=== PATIENT | female | born 1960 | race African-American/Black ===

== ENCOUNTER 2016-10-06 20:37 | Inpatient (IN) | payer MEDICAID, MEDICARE ==
[~2016-10-06] VITALS: Ht 165.1 cm; Wt 55.3 kg
[~2016-10-06 20:37] MED LIST: BLOOD PRESSURE MED; QUET1TAB67 PO
[2016-10-06 20:44] VITALS: BP 95/70; PULSE 115; RESP 22; TEMP 103; O2SAT 98
[2016-10-06 21:04] VITALS: BP 113/69; PULSE 113; RESP 20; O2SAT 96
[2016-10-06] MEDS ORDERED: ACETAMINOPHEN 325 MG TAB PO ONE (21:30)
[2016-10-06] MEDS ORDERED: PIPERACIL-TAZO 4.5 GM PREMIX 100 ML IV ONE (21:30)
[2016-10-06] MEDS ORDERED: VANCOMYCIN INJ 1,000 MG in SODIUM CHLOR 0.9% 250 ML INJ 250 ML IV ONE (21:30)
[2016-10-06] MEDS ORDERED: SODIUM CHLOR 0.9% 1000 ML INJ 1,000 ML IV ONE (21:30)
--- NOTE | 2016-10-06 21:30 | PD ---
HPI Chief Complaint: Fever Time Seen by Provider: 21:21 Travel History International Travel<30 days: No Contact w/Intl Traveler<30days: No Traveled to known affect area: No History of Present Illness HPI 56-year-old female presents to the emergency department by private transportation for evaluation of myalgias arthralgias fever with right chest pain and shortness of breath since Thursday. Patient states that she has taken ibuprofen intermittently. Last dose was at 7 AM today. Patient states symptoms have not improved since 5 decided to come to the emergency room. Patient has not had any cough. Patient denies phlegm production. Patient's had headache with fever but otherwise no ongoing headache and no neck stiffness or pain. No sore throat or earache. Patient is concerned she has the flu. Patient denies any abdominal pain. Patient's had no nausea or vomiting. Patient denies diarrhea. Patient denies dysuria frequency urgency or flank pain. No report of vaginal discharge or abnormal vaginal bleeding. No joint pain or swelling. No skin rash. No injury or fall. Patient is not followed up with an urgent care primary care provider. Patient takes no prescription medications. Patient has prior history of migraines. [facility] Past Medical History Narrative Medical Bipolar disorder, migraines, hypertension, tubal ligation, hand surgery, tonsillectomy; tobacco use occasional alcohol use; nursing notes reviewed Bipolar Disorder: Yes Depression: Yes Hypertension: Yes Respiratory: Yes Tetanus Vaccination: Unknown Influenza Vaccination: No ?: Not LMP: MENOPAUSE Tubal Ligation: Yes Past Surgical History Tonsillectomy: Yes Social History Alcohol Use: Yes (occasional) Tobacco Use: Yes (AT LEAST A PPD) Substance Use: No Allergies-Medications (Allergen,Severity, Reaction): Coded Allergies: No Known Allergies (Verified , 10/06/16) Reported Meds & Prescriptions Reported Meds & Active Scripts Active Narrative Medication Advil 7 AM Review of Systems Except as stated in HPI: all other systems reviewed are Neg General / Constitutional: Positive: Fever, Chills Eyes: No: Visual changes HENT: Positive: Headaches, No: Congestion, Neck Stiffness, Neck Pain Cardiovascular: Positive: Chest Pain or Discomfort (right sided) Respiratory: Positive: Shortness of Breath, No: Cough, Pleuritic Pain Gastrointestinal: No: Nausea, Vomiting, Diarrhea, Abdominal Pain Genitourinary: No: Urgency, Frequency, Dysuria, Flank Pain Musculoskeletal: Positive: Myalgias, Arthralgias Skin: No Rash Neurologic: Positive: Weakness, No: Dizziness, Syncope, Focal Abnormalities, Coordination Problem Psychiatric: No: Anxiety Hematologic/Lymphatic: No: Lymph Node Enlargement Physical Exam Narrative GENERAL: Well-developed well-nourished female in no acute distress no respiratory distress. GCS 15. SKIN: Warm and dry. HEAD: Atraumatic. Normocephalic. EYES: Pupils equal and round. No scleral icterus. No injection or drainage. ENT: No nasal bleeding or discharge. Mucous membranes pink and moist. NECK: Trachea midline. No JVD. No meningismus no nuchal rigidity no Kernig's or Brudzinski. CARDIOVASCULAR: Regular rate and rhythm. Chest wall: right anterior chest wall tender to palpation and reproduces symptom of presentation, no redness, no induration, no fluctuance, no bony abnormality. RESPIRATORY: No accessory muscle use. Clear to auscultation. Breath sounds equal bilaterally. GASTROINTESTINAL: Abdomen soft, non-tender, nondistended. Hepatic and splenic margins not palpable. MUSCULOSKELETAL: Extremities without clubbing, cyanosis, or edema. No obvious deformities. NEUROLOGICAL: Awake and alert. No obvious cranial nerve deficits. Motor grossly within normal limits. Five out of 5 muscle strength in the arms and legs. Normal speech. PSYCHIATRIC: Appropriate mood and affect; insight and judgment normal. Data Data Last Documented VS Vital Signs Date Time Temp Pulse Resp B/P Pulse Ox O2 Delivery O2 Flow Rate FiO2 10/06/16 22:36 101.5 100 20 97/64 98 Room Air Orders Electrocardiogram (10/06/16 21:21) Complete Blood Count With Diff (10/06/16 21:21) Comprehensive Metabolic Panel (10/06/16 21:21) Influenzae A/B Antigen (10/06/16 21:21) Chest, Single Ap (10/06/16 21:21) Ecg Monitoring (10/06/16 21:21) Iv Access Insert/Monitor (10/06/16 21:21) Oximetry (10/06/16 21:21) Acetaminophen (Tylenol) (10/06/16 21:30) Sodium Chlor 0.9% 1000 Ml Inj (Ns 1000 M (10/06/16 21:30) Lactic Acid Sepsis Protocol (10/06/16 21:21) Blood Culture (10/06/16 21:21) Piperacil-Tazo 4.5 Gm Premix (Zosyn 4.5 (10/06/16 21:30) Vancomycin Inj (Vancomycin Inj) (10/06/16 21:30) Urinalysis - C+S If Indicated (10/06/16 21:39) Urine Culture (10/06/16 21:20) Ketorolac Inj (Toradol Inj) (10/06/16 22:30) Drug Screen, Random Urine (10/06/16 22:41) Ct Pulmonary Angiogram (10/06/16 ) Sodium Chlorid 0.9% 500 Ml Inj (Ns 500 M (10/06/16 22:45) Admit Order (Ed Use Only) (10/06/16 ) ^ Saline Lock (10/06/16 22:42) Resp Oxygen Hilton C Titrat 1-4 L (10/06/16 ) Notify Dr: Other (10/06/16 22:42) Sodium Chloride 0.9% Flush (Ns Flush) (10/07/16 09:00) Sodium Chloride 0.9% Flush (Ns Flush) (10/06/16 22:45) Labs Laboratory Tests Test 10/06/16 10/06/16 21:20 21:30 Urine Color YELLOW Urine Turbidity CLEAR Urine pH 6.0 Urine Specific [place] 1.025 Urine Protein 100 mg/dL Urine Glucose (UA) NEG mg/dL Urine Ketones NEG mg/dL Urine Occult Blood LARGE Urine Nitrite NEG Urine Bilirubin NEG Urine Leukocyte Esterase NEG Urine RBC 4-9 /hpf Urine WBC 9-14 /hpf Urine Squamous Epithelial > 8 /hpf Cells Urine Bacteria FEW /hpf Urine Mucus FEW /lpf Microscopic Urinalysis Comment CULTURE INDICATED Urine Opiates Screen NEG Urine Barbiturates Screen NEG Urine Amphetamines Screen NEG Urine Benzodiazepines Screen NEG Urine Cocaine Screen NEG Urine Cannabinoids Screen NEG White Blood Count 8.4 TH/MM3 Red Blood Count 3.84 MIL/MM3 Hemoglobin 11.9 GM/DL Hematocrit 35.6 % Mean Corpuscular Volume 92.6 FL Mean Corpuscular Hemoglobin 31.1 PG Mean Corpuscular Hemoglobin 33.5 % Concent Red Cell Distribution Width 12.4 % Platelet Count 180 TH/MM3 Mean Platelet Volume 9.2 FL Neutrophils (%) (Auto) 71.6 % Lymphocytes (%) (Auto) 19.8 % Monocytes (%) (Auto) 7.4 % Eosinophils (%) (Auto) 0.5 % Basophils (%) (Auto) 0.7 % Neutrophils # (Auto) 6.0 TH/MM3 Lymphocytes # (Auto) 1.7 TH/MM3 Monocytes # (Auto) 0.6 TH/MM3 Eosinophils # (Auto) 0.0 TH/MM3 Basophils # (Auto) 0.1 TH/MM3 CBC Comment DIFF FINAL Differential Comment Sodium Level 137 MEQ/L Potassium Level 3.5 MEQ/L Chloride Level 99 MEQ/L Carbon Dioxide Level 28.2 MEQ/L Anion Gap 10 MEQ/L Blood Urea Nitrogen 9 MG/DL Creatinine 0.64 MG/DL Estimat Glomerular Filtration 117 ML/MIN Rate Random Glucose 101 MG/DL Lactic Acid Level 1.4 mmol/L Calcium Level 8.6 MG/DL Total Bilirubin 0.6 MG/DL Aspartate Amino Transf 202 U/L (AST/SGOT) Alanine Aminotransferase 151 U/L (ALT/SGPT) Alkaline Phosphatase 135 U/L Total Protein 7.9 GM/DL Albumin 3.1 GM/DL [facility] Medical Decision Making Medical Screen Exam Complete: Yes Emergency Medical Condition: Yes Medical Record Reviewed: Yes Interpretation(s) EKG: Sinus tachycardia rate 103 nonspecific anterior T wave changes no acute ST elevation or injury pattern change noted Differential Diagnosis Febrile illness, viral syndrome, pneumonia, influenza, UTI, sepsis Narrative Course 56-year-old female with symptoms 5 days presents with fever or tachycardia and mild tachypnea; patient meets SIRS criteria on triage admission no clear source at this time although patient does complain of shortness of breath with right- sided chest pain concerning/suspicious for possible pneumonia. Patient herself is concerned about having the flu. Patient without any other obvious focality on exam. Patient placed on security monitor IV access obtained specimens collected fluid bolus administered patient presumptively administered Zosyn 4.5 g IV along with vancomycin 1 g IV. Patient also administered antipyretic acetaminophen by mouth. Patient reporting feeling some improved after iv fluids just received tylenol for fever Aware of labs and plan for admission--agreeable \discussed with [facility] MD Dr Gagnon --requests CT pulmonary angiogram and uds; will add CT abd/pel as well UDS: negative Sepsis Criteria SIRS Criteria (2 or more): Temp > 100.9 or < 96.8, Heart rate over 90, RR > 20 or PaCO2 < 32 Sepsis Criteria (SIRS+source): Infect source susp/known (urine) Physician Communication Physician Communication discussed with Dr Gagnon will admit inpatient for sepsis Diagnosis Primary Impression: Sepsis Qualified Code: A41.9 - Sepsis, due to unspecified organism Additional Impressions: UTI (urinary tract infection) Qualified Code: N39.0 - Urinary tract infection without hematuria, site unspecified Elevated LFTs Admitting Information Admitting Physician Requests: Admit Rubi Hopkins MD October 06, 2016 21:30
--- NOTE | 2016-10-06 21:47 | RADHPO ---
EXAM DATE/TIME: 10/06/2016 21:31 [facility] COMPARISON: No previous studies available for comparison. INDICATIONS : Fever and body aches. MEDICAL HISTORY : None. SURGICAL HISTORY : None. ENCOUNTER: Initial ACUITY: 3 days PAIN SCORE: 7/10 LOCATION: Bilateral chest FINDINGS: A single view of the chest demonstrates the lungs to be symmetrically aerated without evidence of mas s, infiltrate or effusion. The cardiomediastinal contours are unremarkable. Osseous structures are intact. CONCLUSION: No acute disease. Xavier Lindsey MD on October 06, 2016 at 21:45 Board Certified Radiologist. This report was verified electronically.
[2016-10-06 21:53] LABS: BASOPHIL # 0.1 TH/MM3 (0-0.2); BASOPHIL % 0.7 % (0.0-2.0); EOSINOPHIL % 0.5 % (0.0-4.0); HEMATOCRIT 35.6 % (35.0-46.0); HEMO FLAGS DIFF FINAL; LYMPH % 19.8 % (9.0-44.0); LYMPHOCYTE # 1.7 TH/MM3 (1.0-4.8); MEAN CELL VOLUME 92.6 FL (80.0-100.0); MEAN CORPUSCULAR HEMOGLOBIN 31.1 PG (27.0-34.0); MEAN CORPUSCULAR HGB CONC 33.5 % (32.0-36.0); MONO % 7.4 % (0.0-8.0); NEUT % 71.6 % (16.0-70.0); PLATELET COUNT 180 TH/MM3 (150-450); RED BLOOD COUNT 3.84 MIL/MM3 (4.00-5.30); RED CELL DISTRIBUTION WIDTH 12.4 % (11.6-17.2); WHITE BLOOD COUNT 8.4 TH/MM3 (4.0-11.0)
[2016-10-06 21:58] LABS: BLOOD, URINE LARGE (NEG); GLUCOSE,URINE NEG (NEG); KETONE, URINE NEG (NEG); NITRITE,URINE NEG (NEG)
[2016-10-06 22:01] LABS: CHLORIDE 99 MEQ/L (98-107); POTASSIUM 3.5 MEQ/L (3.5-5.1); SODIUM (NA) 137 MEQ/L (136-145)
[2016-10-06 22:04] LABS: URINE COLOR YELLOW (YELLW/STRAW)
[2016-10-06 22:05] LABS: ANION GAP 10 MEQ/L (5-15); BICARBONATE 28.2 MEQ/L (21.0-32.0); BLOOD UREA NITROGEN 9 MG/DL (7-18)
[2016-10-06 22:06] LABS: BACTERIA, URINE FEW /hpf; COMMENT (UR) CULTURE INDICATED; CULTURE IF INDICATED CULTURE INDICATED; MUCUS URINE FEW /lpf (OCC); SQUAMOUS EPITHELIAL CELL URINE > 8 /hpf (0-5)
[2016-10-06 22:07] VITALS: O2SAT 97
[2016-10-06 22:08] LABS: ALT (GPT) 151 U/L (10-53); AST (GOT) 202 U/L (15-37); GLOMERULAR FILTRATION RATE 117 ML/MIN (>89)
[2016-10-06 22:09] LABS: TOTAL BILIRUBIN ADULT 0.6 MG/DL (0.2-1.0)
[2016-10-06 22:11] LABS: ALKALINE PHOSPHATASE 135 U/L (45-117)
[2016-10-06] MEDS ORDERED: KETOROLAC TROMETHAMINE 30 MG/ML (IVP) VIAL IV PUSH ONE (22:30)
[2016-10-06 22:36] VITALS: BP 97/64; PULSE 100; RESP 20; TEMP 101.5; O2SAT 98
[2016-10-06] MEDS ORDERED: SODIUM CHLORIDE 0.9% FLUSH 10 ML FLUSH IVF PRN (22:45)
[2016-10-06] MEDS ORDERED: SODIUM CHLORID 0.9% 500 ML INJ 500 ML IV ONE (22:45)
[2016-10-06] MEDS: SODIUM CHLOR 0.9% 1000 ML INJ 1,000 ML IV SCH (22:59)
[2016-10-06] MEDS ORDERED: ACETAMINOPHEN 325 MG TAB PO PRN (23:00)
[2016-10-06] MEDS ORDERED: NALOXONE HCL 0.4 MG/ML AMP IV PRN (23:00)
[2016-10-06] MEDS ORDERED: SODIUM CHLORIDE 0.9% FLUSH 10 ML FLUSH IV FLUSH PRN (23:00)
[2016-10-06] MEDS ORDERED: ONDANSETRON HCL 4 MG/2 ML VIAL IVP PRN (23:00)
[2016-10-06 23:02] LABS: AMPHETAMINE, URINE NEG (NEG); BARBITURATES, URINE NEG (NEG); COCAINE, URINE NEG (NEG)
[2016-10-06] MEDS ORDERED: IOHEXOL 350 MG/ML 10 ML VIAL (for RAD DIAG) IV ONE (23:50)
[2016-10-07] VITALS (10 sets, daily range): BP systolic 84–110; BP diastolic 48–78; PULSE 70–105; RESP 16–20; TEMP 97–102.8; O2SAT 95–100
--- NOTE | 2016-10-07 00:19 | RADHPO ---
EXAM DATE/TIME: 10/06/2016 23:44 [facility] COMPARISON: No previous studies available for comparison. INDICATIONS : Right chest pain. IV CONTRAST: 100 cc Omnipaque 350 (iohexol) IV ; Cumulative dose for multiple exams. RADIATION DOSE: 5.92 CTDIvol (mGy) MEDICAL HISTORY : Hypertension. SURGICAL HISTORY : Tubal ligation. ENCOUNTER: Initial ACUITY: 1 week PAIN SCALE: 6/10 LOCATION: Right chest TECHNIQUE: Volumetric scanning of the chest was performed using a pulmonary embolism protocol MIP images were re constructed. Using automated exposure control and adjustment of the mA and/or kV according to patien t size, radiation dose was kept as low as reasonably achievable to obtain optimal diagnostic quality images. FINDINGS: PULMONARY ARTERIES: No filling defects are seen in the pulmonary arteries through the segmental level. LUNGS: There is dense consolidation involving the medial aspects of the left upper lobe. This extends along the axial interstitium towards the hilum. No associated bronchiectasis. Remaining lungs are clear. A few small subpleural blebs are seen on the left. A calcified granuloma is seen within the left upper lobe. PLEURAE: There is no pleural thickening or pleural effusion. MEDIASTINUM: There is good visualization of the great vessels of the middle mediastinum. No evidence of mediastin al or hilar adenopathy/mass. MUSCULOSKELETAL: Within normal limits for patient age. MISCELLANEOUS: The visualized upper abdominal organs demonstrate no acute abnormality. CONCLUSION: 1. No PE. 2. Dense consolidation within the left upper lobe. This may simply be an infectious infiltrate, howev er, followup studies are needed to document complete resolution. Other etiologies such as bronchoalve olar cell carcinoma can have a similar appearance. Anthony Quezada Jr., MD on October 07, 2016 at 0:14 Board Certified Radiologist. This report was verified electronically.
--- NOTE | 2016-10-07 00:22 | RADHPO ---
EXAM DATE/TIME: 10/06/2016 23:44 [facility] COMPARISON: No previous studies available for comparison. INDICATIONS : Fever. Body aches. Weakness. IV CONTRAST: 100 cc Omnipaque 350 (iohexol) IV ; Cumulative dose for multiple exams. ORAL CONTRAST: No oral contrast ingested. RADIATION DOSE: 5.76 CTDIvol (mGy) MEDICAL HISTORY : Hypertension. SURGICAL HISTORY : Tubal ligation. ENCOUNTER: Initial ACUITY: 1 week PAIN SCALE: 6/10 LOCATION: Bilateral upper quadrant lower quadrant TECHNIQUE: Volumetric scanning of the abdomen and pelvis was performed. Using automated exposure control and ad justment of the mA and/or kV according to patient size, radiation dose was kept as low as reasonably achievable to obtain optimal diagnostic quality images. FINDINGS: LOWER LUNGS: The visualized lower lungs are clear. LIVER: Homogeneous density without lesion. There is no dilation of the biliary tree. No calcified gallston es. SPLEEN: Normal size without lesion. PANCREAS: Within normal limits. KIDNEYS: Normal in size and shape. There is no mass, stone or hydronephrosis. ADRENAL GLANDS: Within normal limits. VASCULAR: There is no aortic aneurysm. BOWEL/MESENTERY: The stomach, small bowel, and colon demonstrate no acute abnormality. There is no free intraperitone al air or fluid. Scattered colonic diverticuli. No acute inflammation. ABDOMINAL WALL: Within normal limits. RETROPERITONEUM: There is no lymphadenopathy. BLADDER: No wall thickening or mass. REPRODUCTIVE: Within normal limits. INGUINAL: There is no lymphadenopathy or hernia. MUSCULOSKELETAL: Within normal limits for patient age. CONCLUSION: 1. No acute abnormality. 2. Colonic diverticulosis. Anthony Quezada Jr., MD on October 07, 2016 at 0:19 Board Certified Radiologist. This report was verified electronically.
[2016-10-07] MEDS ORDERED: KETOROLAC TROMETHAMINE 60 MG/2 ML (IM) VIAL IM PRN (06:15)
[2016-10-07 06:39] LABS: AUTOMATED NEUTROPHIL # 5.3 TH/MM3 (1.8-7.7); BASOPHIL # 0.1 TH/MM3 (0-0.2); BASOPHIL % 0.8 % (0.0-2.0); EOSINOPHIL # 0.1 TH/MM3 (0-0.4); EOSINOPHIL % 1.4 % (0.0-4.0); HEMATOCRIT 33.9 % (35.0-46.0); HEMO FLAGS DIFF FINAL; LYMPH % 23.6 % (9.0-44.0); MEAN CELL VOLUME 93.2 FL (80.0-100.0); MEAN CORPUSCULAR HEMOGLOBIN 30.9 PG (27.0-34.0); MEAN CORPUSCULAR HGB CONC 33.2 % (32.0-36.0); MONO % 12.3 % (0.0-8.0); NEUT % 61.9 % (16.0-70.0); PLATELET COUNT 168 TH/MM3 (150-450); RED BLOOD COUNT 3.64 MIL/MM3 (4.00-5.30); RED CELL DISTRIBUTION WIDTH 12.4 % (11.6-17.2); WHITE BLOOD COUNT 8.6 TH/MM3 (4.0-11.0)
[2016-10-07 06:57] LABS: POTASSIUM 3.2 MEQ/L (3.5-5.1)
[2016-10-07 07:01] LABS: BICARBONATE 27.4 MEQ/L (21.0-32.0)
[2016-10-07] MEDS: SODIUM CHLORIDE 0.9% FLUSH 10 ML FLUSH IV FLUSH SCH ×2 (09:00→20:53)
[2016-10-07] MEDS ORDERED: SODIUM CHLORIDE 0.9% FLUSH 10 ML FLUSH IV FLUSH SCH (09:00)
[2016-10-07] MEDS: VANCOMYCIN INJ 1,250 MG in SODIUM CHLOR 0.9% 250 ML INJ 250 ML IV SCH ×2 (10:34→20:53)
[2016-10-07] MEDS: SODIUM CHLOR 0.9% 1000 ML INJ 1,000 ML IV SCH ×2 (10:35→17:57)
--- NOTE | 2016-10-07 12:11 | PD.PN.STU ---
Subjective Remarks Patient is a 56 year old woman who presented to ED yesterday with complaint of myalgias, fever, right-sided chest pain, and shortness of breath since Thursday. After a thorough workup, she was found to have a UTI. She has received IV vanc and pip/tazo and is feeling better. Her only complaint now is a headache which has persisted. She reports history of migraines. She denies urinary frequency, dysuria, nausea/vomiting, diarrhea, and dizziness. She takes no medications at home. She smokes about a half ppd. Objective Vitals GENERAL: Thin, well-developed, well-nourished female in no acute distress no respiratory distress. SKIN: Warm and dry. HEAD: Atraumatic. Normocephalic. EYES: Pupils equal and round. No scleral icterus. No injection or drainage. Extraocular movements intact. ENT: Mucous membranes pink and moist. NECK: Trachea midline. No JVD. CARDIOVASCULAR: Regular rate and rhythm. RESPIRATORY: No accessory muscle use. Clear to auscultation. Breath sounds equal bilaterally. GASTROINTESTINAL: Abdomen soft, non-tender, nondistended. Hepatic and splenic margins not palpable. MUSCULOSKELETAL: Extremities without clubbing, cyanosis, or edema. No obvious deformities. NEUROLOGICAL: Awake and alert. No obvious cranial nerve deficits. Motor grossly within normal limits. Five out of 5 muscle strength in the arms and legs. Normal speech. PSYCHIATRIC: Appropriate mood and affect; insight and judgment normal. Vital Signs Date Time Temp Pulse Resp B/P Pulse Ox O2 Delivery O2 Flow Rate FiO2 10/07/16 09:22 98 21 10/07/16 08:00 97.2 79 18 110/60 98 10/07/16 07:55 18 10/07/16 06:25 98 21 10/07/16 00:26 101.0 86 18 93/62 98 10/07/16 00:00 97.3 75 20 84/48 100 10/06/16 23:12 20 10/06/16 22:36 101.5 100 20 97/64 98 Room Air 10/06/16 22:07 97 Room Air 10/06/16 21:06 100 Room Air 10/06/16 21:04 113 20 113/69 96 Room Air 10/06/16 20:44 103.0 115 22 95/70 98 I/O 5/810/06/16 10/06/16 10/07/16 10/07/16 10/07/16 07:00 15:00 23:00 07:00 15:00 23:00 Intake Total 1490 ml 200 ml Balance 1490 ml 200 ml Intake Oral 240 ml IV Total 1250 ml 200 ml # Voids 3 1 # Bowel Movements 0 Result Diagram: 10/07/16 0609 10/07/16 0609 A/P Assessment and Plan UTI: Given IV Vanc and Pip/Tazo Pending urine culture. Sepsis: Given IV Vanc and Pip/Tazo Resolved. Migraine: History of migraine headaches Administer Sumatriptan Hypokalemia: Recheck BMP Replace as necessary Hypocalcemia: Recheck BMP Replace as necessary [facility] October 07, 2016 12:10 Maninder Westfall MD October 08, 2016 12:16
[2016-10-07] MEDS: PIPERACIL-TAZO 3.375 GM PREMIX 50 ML IV SCH ×2 (12:15→16:27)
--- NOTE | 2016-10-07 15:40 | EKG ---
Date Performed: 10/06/2016 Time Performed: 21:46:58 PTAGE: 56 years EKG: Sinus tachycardia. Anterior T wave changes are nonspecific Compared to prior tracing no sig nificant change Borderline ECG PREVIOUS TRACING : 10/21/2007 21.47 DOCTOR: Eusebio Gutierrez Interpretating Date/Time 10/07/2016 15:36:58
--- NOTE | 2016-10-07 15:44 | HHI.PR ---
Objective Vitals Vital Signs Date Time Temp Pulse Resp B/P Pulse Ox O2 Delivery O2 Flow Rate FiO2 10/07/16 12:00 97.0 70 16 100/58 98 10/07/16 09:22 98 21 10/07/16 08:00 97.2 79 18 110/60 98 10/07/16 07:55 18 10/07/16 06:25 98 21 10/07/16 00:26 101.0 86 18 93/62 98 10/07/16 00:00 97.3 75 20 84/48 100 10/06/16 23:12 20 10/06/16 22:36 101.5 100 20 97/64 98 Room Air 10/06/16 22:07 97 Room Air 10/06/16 21:06 100 Room Air 10/06/16 21:04 113 20 113/69 96 Room Air 10/06/16 20:44 103.0 115 22 95/70 98 I/O 10/06/16 10/06/16 10/06/16 10/07/16 10/07/16 10/07/16 07:00 15:00 23:00 07:00 15:00 23:00 Intake Total 1490 ml 1000 ml Balance 1490 ml 1000 ml Intake Oral 240 ml 800 ml IV Total 1250 ml 200 ml # Voids 3 4 # Bowel Movements 0 Result Diagram: 10/07/1660810/07/16608 Maninder Westfall MD October 07, 2016 15:44
--- NOTE | 2016-10-07 16:14 | HHI.HP ---
HPI Service [facility] Hospitalists Primary Care Physician No Primary Care Physician Admission Diagnosis sepsis; uti; elevated LFT's Diagnoses: Chief Complaint: Myalgias, fever Travel History International Travel<30 Days: No Contact w/Intl Traveler <30 Da: No Traveled to Known Affected Are: No History of Present Illness This is a 56-year-old female with past medical history significant for hypertension and depression who is noncompliant with medications and presents to [facility] complaining of myalgias, arthralgias, fever associated with right chest pain and shortness of breath since Thursday. The patient states that she had taken ibuprofen intermittently but symptoms have not improved since 5 AM prior to presentation to emergency department. The patient denies any cough, sputum production. The patient denies abdominal pain , diarrhea, nausea vomiting, denies dysuria, frequency, urgency or flank pain. There are no reports of vaginal discharge or vaginal bleeding. Denies joint pain or swelling, denies skin rash. Review of Systems As per history of present illness, other systems reviewed by me and negative Past Family Social History Past Medical History 1. Hypertension. 2. Depression. Past Surgical History 1. Tubal ligation. 2. Hand surgery. 3. Tonsillectomy. Reported Medications Reported Meds & Active Scripts Allergies: Coded Allergies: No Known Allergies (Verified , 10/06/16) Active Ordered Medications Current Medications Medications (Trade) Dose Ordered Sig/Winter Route Start Time Stop Time Status Last Admin (NS 1000 ml Inj) 1,000 ml @ 100 mls/hr Q10H IV 10/06/16 22:59 10/07/16 10:35 (NS Flush) 2 ml UNSCH PRN IV FLUSH 10/06/16 23:00 (NS Flush) 2 ml BID IV FLUSH 10/07/16 09:00 (Tylenol) 650 mg Q4H PRN PO 10/06/16 23:00 10/07/16 06:51 (Zofran Inj) 4 mg Q6H PRN IVP 10/06/16 23:00 Naloxone HCl 0.4 mg 0.4 mg UNSCH PRN IV 10/06/16 23:00 Vancomycin HCl 1250 mg/Sodium Chloride 262.5 ml @ 262.5 mls/ hr Q12H IV 10/07/16 09:00 10/07/16 10:34 (Zosyn 3.375 Gm Premix) 50 ml @ 100 mls/hr Q8H IV 10/07/16 09:00 10/07/16 12:15 (Toradol Inj) 15 mg Q6H PRN IM 10/07/16 06:15 10/12/16 06:14 (Motrin) 400 mg Q8H PRN PO 10/07/16 15:45 Family History Father, grandmother and grandfather of heart disease. Social History She smokes one pack per day. Drinks alcohol occasionally. Denies using illicit drugs Physical Exam Vital Signs Vital Signs Date Time Temp Pulse Resp B/P Pulse Ox O2 Delivery O2 Flow Rate FiO2 10/07/16 12:00 97.0 70 16 100/58 98 10/07/16 09:22 98 21 10/07/16 08:00 97.2 79 18 110/60 98 10/07/16 07:55 18 10/07/16 06:25 98 21 10/07/16 00:26 101.0 86 18 93/62 98 10/07/16 00:00 97.3 75 20 84/48 100 10/06/16 23:12 20 10/06/16 22:36 101.5 100 20 97/64 98 Room Air 10/06/16 22:07 97 Room Air 10/06/16 21:06 100 Room Air 10/06/16 21:04 113 20 113/69 96 Room Air 10/06/16 20:44 103.0 115 22 95/70 98 Physical Exam GENERAL: This is a well-nourished, well-developed patient, in no apparent distress. SKIN: No rashes, ecchymoses or lesions. Cool and dry. HEAD: Atraumatic. Normocephalic. No temporal or scalp tenderness. EYES: Pupils equal round and reactive. Extraocular motions intact. No scleral icterus. No injection or drainage. ENT: Nose without bleeding, purulent drainage or septal hematoma. Throat without erythema, tonsillar hypertrophy or exudate. Uvula midline. Airway patent. NECK: Trachea midline. No JVD or lymphadenopathy. Supple, nontender, no meningeal signs. CARDIOVASCULAR: Regular rate and rhythm without murmurs, gallops, or rubs. RESPIRATORY: Clear to auscultation. Breath sounds equal bilaterally. No wheezes , rales, or rhonchi. GASTROINTESTINAL: Abdomen soft, non-tender, nondistended. No hepato-splenomegaly , or palpable masses. No guarding. MUSCULOSKELETAL: Extremities without clubbing, cyanosis, or edema. No joint tenderness, effusion, or edema noted. No calf tenderness. Negative Homans sign bilaterally. NEUROLOGICAL: Awake and alert. Cranial nerves II through XII intact. Motor and sensory grossly within normal limits. Five out of 5 muscle strength in all muscle groups. Normal speech. Laboratory Laboratory Tests Test 10/06/16 10/06/16 10/07/16 21:20 21:30 06:09 Urine Color YELLOW Urine Turbidity CLEAR Urine pH 6.0 Urine Specific [place] 1.025 Urine Protein 100 Urine Glucose (UA) NEG Urine Ketones NEG Urine Occult Blood LARGE Urine Nitrite NEG Urine Bilirubin NEG Urine Leukocyte Esterase NEG Urine RBC 4-9 Urine WBC 9-14 Urine Squamous Epithelial > 8 Cells Urine Bacteria FEW Urine Mucus FEW Microscopic Urinalysis Comment CULTURE INDICATED Urine Opiates Screen NEG Urine Barbiturates Screen NEG Urine Amphetamines Screen NEG Urine Benzodiazepines Screen NEG Urine Cocaine Screen NEG Urine Cannabinoids Screen NEG White Blood Count 8.4 8.6 Red Blood Count 3.84 3.64 Hemoglobin 11.9 11.3 Hematocrit 35.6 33.9 Mean Corpuscular Volume 92.6 93.2 Mean Corpuscular Hemoglobin 31.1 30.9 Mean Corpuscular Hemoglobin 33.5 33.2 Concent Red Cell Distribution Width 12.4 12.4 Platelet Count 180 168 Mean Platelet Volume 9.2 9.2 Neutrophils (%) (Auto) 71.6 61.9 Lymphocytes (%) (Auto) 19.8 23.6 Monocytes (%) (Auto) 7.4 12.3 Eosinophils (%) (Auto) 0.5 1.4 Basophils (%) (Auto) 0.7 0.8 Neutrophils # (Auto) 6.0 5.3 Lymphocytes # (Auto) 1.7 2.0 Monocytes # (Auto) 0.6 1.1 Eosinophils # (Auto) 0.0 0.1 Basophils # (Auto) 0.1 0.1 CBC Comment DIFF FINAL DIFF FINAL Differential Comment Sodium Level 137 142 Potassium Level 3.5 3.2 Chloride Level 99 106 Carbon Dioxide Level 28.2 27.4 Anion Gap 10 9 Blood Urea Nitrogen 9 8 Creatinine 0.64 0.53 Estimat Glomerular Filtration 117 145 Rate Random Glucose 101 91 Lactic Acid Level 1.4 Calcium Level 8.6 8.2 Total Bilirubin 0.6 Aspartate Amino Transf 202 (AST/SGOT) Alanine Aminotransferase 151 (ALT/SGPT) Alkaline Phosphatase 135 Total Protein 7.9 Albumin 3.1 Date/Time Procedure Status Source Growth 10/06/16 21:40 Influenza Types A,B Antigen (ITZ) - Final Complete Nasal Washing NEGATIVE FOR FLU A AND B ANTIGEN.... 10/06/16 21:35 Aerobic Blood Culture - Preliminary Resulted Blood Peripheral NO GROWTH IN 1 DAY 10/06/16 21:35 Anaerobic Blood Culture - Preliminary Resulted Blood Peripheral NO GROWTH IN 1 DAY 10/06/16 21:20 Urine Culture - Preliminary Resulted Urine Clean Catch RESULTS PENDING Result Diagram: 10/07/16 0609 10/07/16 0609 Imaging Last Impressions Chest X-Ray 10/06/162120 Signed Impressions: Service Date/Time: Thursday, October 06, 2016 21:31 - CONCLUSION: No acute disease. Xavier Lindsey MD CT Angiography 10/06/16 0000 Signed Impressions: Service Date/Time: Thursday, October 06, 2016 23:44 - CONCLUSION: 1. No PE. 2. Dense consolidation within the left upper lobe. This may simply be an infectious infiltrate, however, followup studies are needed to document complete resolution. Other etiologies such as bronchoalveolar cell carcinoma can have a similar appearance. Anthony Quezada Jr., MD Abdomen/Pelvis CT 10/06/16 0000 Signed Impressions: Service Date/Time: Thursday, October 06, 2016 23:44 - CONCLUSION: 1. No acute abnormality. 2. Colonic diverticulosis. Anthony Quezada Jr., MD Septic Shock Reassessment Heart: Regular rate and rhythm Lungs: Clear Skin: Warm Peripheral Pulses: Bounding Right Radial Bounding Left Radial Capillary Refill: <2 seconds Assessment and Plan Problem List: (1) Sepsis ICD Code: A41.9 Status: Acute Plan: Sepsis secondary to community acquired pneumonia and UTI. CTA showed left upper lobe infiltrate, UA positive. Sepsis present on admission with patient presenting and temperature of 103.0 and heart rate of 115 as well as a respiratory rate of 22. Continue IV antibiotics, patient started on IV vancomycin and Zosyn, continue Continue IV fluids in the form of normal saline Lactic acid 1.4. Follow-up blood cultures Follow-up urine cultures and adjust antibiotics accordingly. (2) CAP (community acquired pneumonia) ICD Code: J18.9 Status: Acute Plan: As seen on CTA mentioned above. Continue IV broad-spectrum antibiotics. We'll check urine pneumococcal antigen, urine Legionella antigen, provide supplemental oxygen as needed. Patient will need a repeat CT scan of the chest in 2 months. (3) UTI (urinary tract infection) ICD Code: N39.0 Status: Acute Plan: UA positive. Follow-up urine cultures. Continue IV antibiotics. (4) Fever ICD Code: R50.9 Status: Acute Plan: Due to sepsis secondary to UTI. Will Rx ibuprofen when necessary for fever and elevated liver function tests. (5) Hypokalemia ICD Code: E87.6 Status: Acute Plan: Likely due to nutritional deficiency. Replace orally and continue to monitor BMP. (6) Elevated LFTs ICD Code: R94.5 Status: Acute Plan: Check hepatitis B and liver ultrasound. Continue to monitor liver function test. (7) Chest pain ICD Code: R07.9 Status: Acute Plan: CTA reviewed by me showed a dense consolidation within left upper lobe which could be due to an infectious infiltrate, however follow-up studies are needed to document complete resolution. Other etiologies such as bronchioloalveolar cell carcinoma can have similar appearance. Continue IV antibiotics as above. Assessment and Plan DVT prophylaxis: SCDs, Lovenox subcutaneously. Code Status Full code Discussed Condition With Patient Physician Certification 2 Midnight Certification Type: Admission for Inpatient Services Order for Inpatient Services The services are ordered in accordance with Medicare regulations or non- Medicare payer requirements, as applicable. In the case of services not specified as inpatient-only, they are appropriately provided as inpatient services in accordance with the 2-midnight benchmark. Estimated LOS (days): 2 days is the estimated time the patient will need to remain in the hospital, assuming treatment plan goals are met and no additional complications. Post-Hospital Plan: Home Problem Qualifiers (1) Sepsis: Qualified Code: A41.9 - Sepsis, due to unspecified organism (2) UTI (urinary tract infection): Qualified Code: N39.0 - Urinary tract infection without hematuria, site unspecified (3) Fever: Qualified Code: R50.9 - Fever, unspecified fever cause (4) Chest pain: Maninder Westfall MD October 07, 2016 16:14
[2016-10-07] MEDS: IBUPROFEN 400 MG TAB PO PRN (16:21)
[2016-10-08] VITALS: BP 121/77; PULSE 65; RESP 18; TEMP 97.4; O2SAT 94
[2016-10-08] MEDS: PIPERACIL-TAZO 3.375 GM PREMIX 50 ML IV SCH ×2 (00:27→08:28)
[2016-10-08] MEDS: SODIUM CHLOR 0.9% 1000 ML INJ 1,000 ML IV SCH ×2 (00:27→12:16)
[2016-10-08] MEDS: IBUPROFEN 400 MG TAB PO PRN ×2 (05:28→12:15)
[2016-10-08] MEDS: SODIUM CHLORIDE 0.9% FLUSH 10 ML FLUSH IV FLUSH SCH (08:29)
[2016-10-08] MEDS: VANCOMYCIN INJ 1,250 MG in SODIUM CHLOR 0.9% 250 ML INJ 250 ML IV SCH (08:29)
[2016-10-08 09:04] VITALS: BP 118/75; PULSE 67; RESP 14; TEMP 97.1; O2SAT 100
--- NOTE | 2016-10-08 09:04 | PD.PN.STU ---
Subjective Remarks pt reports feeling much better chest pain minimal today, continues to improve no dysuria, nausea/vomiting, SOB, cough/sputum production last BM yesterday in ED Objective Vitals GENERAL: Thin, well-developed, well-nourished female in no acute distress no respiratory distress. SKIN: Warm and dry. HEAD: Atraumatic. Normocephalic. EYES: Pupils equal and round. No scleral icterus. No injection or drainage. Extraocular movements intact. ENT: Mucous membranes pink and moist. NECK: Trachea midline. No JVD. CARDIOVASCULAR: Regular rate and rhythm. RESPIRATORY: No accessory muscle use. Clear to auscultation. Breath sounds equal bilaterally. GASTROINTESTINAL: Abdomen soft, non-tender, nondistended. MUSCULOSKELETAL: Extremities without clubbing, cyanosis, or edema. No obvious deformities. NEUROLOGICAL: Awake and alert. No obvious cranial nerve deficits. Motor grossly within normal limits. Five out of 5 muscle strength in the arms and legs. Normal speech. PSYCHIATRIC: Appropriate mood and affect; insight and judgment normal. Vital Signs Date Time Temp Pulse Resp B/P Pulse Ox O2 Delivery O2 Flow Rate FiO2 10/08/16 00:00 97.4 65 18 121/77 94 10/07/16 20:19 100 21 10/07/16 20:00 97.9 80 16 94/50 95 10/07/16 18:27 99.8 10/07/16 16:00 102.8 105 16 105/78 98 10/07/16 12:00 97.0 70 16 100/58 98 10/07/16 09:22 98 21 I/O 10/07/16 10/07/16 10/07/16 10/08/16 10/08/16 10/08/16 07:00 15:00 23:00 07:00 15:00 23:00 Intake Total 1490 ml 1850 ml 240 ml 3033 ml Balance 1490 ml 1850 ml 240 ml 3033 ml Intake Oral 240 ml 1650 ml 240 ml IV Total 1250 ml 200 ml 3033 ml # Voids 3 7 1 # Bowel Movements 0 0 0 Result Diagram: 10/07/16 0609 10/07/16 0609 A/P Assessment and Plan Community Acquired Pneumonia: Improving chest pain Continue antibiotics Repeat Chest CT outpatient basis UTI: Given IV Vanc and Pip/Tazo Pending urine culture. Plan on switching to oral meds once culture is complete Sepsis: Given IV Vanc and Pip/Tazo Resolved. Hypotension: Resolved Migraine: Continues to have headache History of migraine headaches Administer Sumatriptan Hypokalemia: Recheck BMP Replace as necessary Hypocalcemia: Recheck BMP Replace as necessary Elevated LFTs: Liver U/S Check for Hepatitis B aDvid Dc October 08, 2016 09:04 Maninder Westfall MD October 08, 2016 12:18
[2016-10-08 10:42] LABS: AUTOMATED NEUTROPHIL # 3.8 TH/MM3 (1.8-7.7); BASOPHIL % 0.6 % (0.0-2.0); EOSINOPHIL # 0.2 TH/MM3 (0-0.4); EOSINOPHIL % 3.4 % (0.0-4.0); HEMATOCRIT 32.7 % (35.0-46.0); HEMO FLAGS DIFF FINAL; LYMPH % 21.9 % (9.0-44.0); LYMPHOCYTE # 1.3 TH/MM3 (1.0-4.8); MEAN CELL VOLUME 92.6 FL (80.0-100.0); MEAN CORPUSCULAR HEMOGLOBIN 31.4 PG (27.0-34.0); MEAN CORPUSCULAR HGB CONC 33.9 % (32.0-36.0); MONO % 8.8 % (0.0-8.0); NEUT % 65.3 % (16.0-70.0); PLATELET COUNT 177 TH/MM3 (150-450); RED BLOOD COUNT 3.53 MIL/MM3 (4.00-5.30); RED CELL DISTRIBUTION WIDTH 12.5 % (11.6-17.2); WHITE BLOOD COUNT 5.8 TH/MM3 (4.0-11.0)
[2016-10-08 10:53] LABS: CHLORIDE 109 MEQ/L (98-107); SODIUM (NA) 147 MEQ/L (136-145)
[2016-10-08 10:57] LABS: ANION GAP 9 MEQ/L (5-15); BICARBONATE 28.8 MEQ/L (21.0-32.0); BLOOD UREA NITROGEN 4 MG/DL (7-18)
[2016-10-08 11:00] LABS: ALT (GPT) 171 U/L (10-53); AST (GOT) 147 U/L (15-37); GLOMERULAR FILTRATION RATE 126 ML/MIN (>89)
[2016-10-08 11:02] LABS: TOTAL BILIRUBIN ADULT 0.3 MG/DL (0.2-1.0)
[2016-10-08 11:03] LABS: ALKALINE PHOSPHATASE 124 U/L (45-117)
[2016-10-08 11:59] VITALS: BP 120/66; PULSE 64; RESP 15; TEMP 97.4; O2SAT 100
[2016-10-08] MEDS ORDERED: SUMAtriptan INJ 6 MG/0.5 ML VIAL SQ ONE (12:15)
[2016-10-08] MEDS ORDERED: POTASSIUM CHLORIDE 10 MEQ CONTROLLED RELEASE TAB PO ONE (12:30)
[2016-10-08] MEDS: 1/2 NS + KCL 20 MEQ INJ 1,000 ML IV SCH (12:39)
--- NOTE | 2016-10-08 12:39 | HHI.PR ---
Subjective Remarks patient still c/o headache which is bifrontal constant denies nausea had a fever of 102.8 last night right chest pain is improving sodium trending up Potassium low Objective Vitals Vital Signs Date Time Temp Pulse Resp B/P Pulse Ox O2 Delivery O2 Flow Rate FiO2 10/08/16 11:59 97.4 64 15 120/66 100 10/08/16 09:04 97.1 67 14 118/75 100 10/08/16 00:00 97.4 65 18 121/77 94 10/07/16 20:19 100 21 10/07/16 20:00 97.9 80 16 94/50 95 10/07/16 18:27 99.8 10/07/16 16:00 102.8 105 16 105/78 98 I/O 10/07/16 10/07/16 10/07/16 10/08/16 10/08/16 10/08/16 06:59 14:59 22:59 06:59 14:59 22:59 Intake Total 1490 ml 1850 ml 240 ml 3033 ml Balance 1490 ml 1850 ml 240 ml 3033 ml Intake Oral 240 ml 1650 ml 240 ml IV Total 1250 ml 200 ml 3033 ml # Voids 3 7 1 # Bowel Movements 0 0 0 Result Diagram: 10/08/16 1010 10/08/16 1010 Imaging Last Impressions Chest X-Ray 10/06/162120 Signed Impressions: Service Date/Time: Thursday, October 06, 2016 21:31 - CONCLUSION: No acute disease. Xavier Lindsey MD CT Angiography 10/06/16 0000 Signed Impressions: Service Date/Time: Thursday, October 06, 2016 23:44 - CONCLUSION: 1. No PE. 2. Dense consolidation within the left upper lobe. This may simply be an infectious infiltrate, however, followup studies are needed to document complete resolution. Other etiologies such as bronchoalveolar cell carcinoma can have a similar appearance. Anthony Quezada Jr., MD Abdomen/Pelvis CT 10/06/16 0000 Signed Impressions: Service Date/Time: Thursday, October 06, 2016 23:44 - CONCLUSION: 1. No acute abnormality. 2. Colonic diverticulosis. Anthony Quezada Jr., MD Objective Remarks GENERAL: This is a well-nourished, well-developed patient, in no apparent distress. SKIN: No rashes, ecchymoses or lesions. Cool and dry. HEAD: Atraumatic. Normocephalic. No temporal or scalp tenderness. EYES: Pupils equal round and reactive. Extraocular motions intact. No scleral icterus. No injection or drainage. ENT: Nose without bleeding, purulent drainage or septal hematoma. Throat without erythema, tonsillar hypertrophy or exudate. Uvula midline. Airway patent. NECK: Trachea midline. No JVD or lymphadenopathy. Supple, nontender, no meningeal signs. CARDIOVASCULAR: Regular rate and rhythm without murmurs, gallops, or rubs. RESPIRATORY: Clear to auscultation. Breath sounds equal bilaterally. No wheezes , rales, or rhonchi. GASTROINTESTINAL: Abdomen soft, non-tender, nondistended. No hepato-splenomegaly , or palpable masses. No guarding. MUSCULOSKELETAL: Extremities without clubbing, cyanosis, or edema. No joint tenderness, effusion, or edema noted. No calf tenderness. Negative Homans sign bilaterally. NEUROLOGICAL: Awake and alert. Cranial nerves II through XII intact. Motor and sensory grossly within normal limits. Five out of 5 muscle strength in all muscle groups. Normal speech. Medications and IVs Current Medications Medications (Trade) Dose Ordered Sig/Winter Route Start Time Stop Time Status Last Admin (NS 1000 ml Inj) 1,000 ml @ 100 mls/hr Q10H IV 10/06/16 22:59 10/08/16 00:27 (NS Flush) 2 ml UNSCH PRN IV FLUSH 10/06/16 23:00 (NS Flush) 2 ml BID IV FLUSH 10/07/16 09:00 10/08/16 08:29 (Tylenol) 650 mg Q4H PRN PO 10/06/16 23:00 10/07/16 06:51 (Zofran Inj) 4 mg Q6H PRN IVP 10/06/16 23:00 Naloxone HCl 0.4 mg 0.4 mg UNSCH PRN IV 10/06/16 23:00 Vancomycin HCl 1250 mg/Sodium Chloride 262.5 ml @ 262.5 mls/ hr Q12H IV 10/07/16 09:00 10/08/16 08:29 (Zosyn 3.375 Gm Premix) 50 ml @ 100 mls/hr Q8H IV 10/07/16 09:00 10/08/16 08:28 (Toradol Inj) 15 mg Q6H PRN IM 10/07/16 06:15 10/12/16 06:14 10/07/16 16:21 (Motrin) 400 mg Q8H PRN PO 10/07/16 15:45 10/08/16 05:28 (Imitrex Inj) 6 mg ONCE ONCE SQ 10/08/16 12:15 10/08/16 12:16 UNV A/P Problem List: (1) Sepsis ICD Code: A41.9 Status: Acute Plan: Sepsis secondary to community acquired pneumonia and UTI. CTA showed left upper lobe infiltrate, UA positive. Sepsis present on admission with patient presenting and temperature of 103.0 and heart rate of 115 as well as a respiratory rate of 22. Continue IV antibiotics, patient started on IV vancomycin and Zosyn, continue Continue IV fluids in the form of normal saline Lactic acid 1.4. Blood cultures negative 2, negative flu a and B Urine culture showed mixed gram-positive alonso likely contaminant (2) CAP (community acquired pneumonia) ICD Code: J18.9 Status: Acute Plan: As seen on CTA mentioned above. Patient started on IV vancomycin and IV Zosyn. We'll check urine pneumococcal antigen, urine Legionella antigen, provide supplemental oxygen as needed. We'll consult pulmonary for further recommendations. Will DC IV vancomycin and IV Zosyn and start on IV Rocephin and IV azithromycin. (3) UTI (urinary tract infection) ICD Code: N39.0 Status: Acute Plan: UA positive. Urine culture concurrent with contaminants. (4) Fever ICD Code: R50.9 Status: Acute Plan: Due to sepsis secondary to community-acquired pneumonia. Continue ibuprofen as needed for fever. (5) Hypokalemia ICD Code: E87.6 Status: Acute Plan: Likely due to nutritional deficiency. Replace orally and continue to monitor BMP. (6) Elevated LFTs ICD Code: R94.5 Status: Acute Plan: Check hepatitis profile. CT abdomen and pelvis does not show any liver abnormality. Continue to monitor liver function test which is trending down.. (7) Chest pain ICD Code: R07.9 Status: Acute Plan: CTA reviewed by me showed a dense consolidation within left upper lobe which could be due to an infectious infiltrate, however follow-up studies are needed to document complete resolution. Other etiologies such as bronchioloalveolar cell carcinoma can have similar appearance. Continue IV antibiotics as above. Consult pulmonology for further recommendations or possible dilation for bronchoscopy. (8) Headache ICD Code: R51 Status: Acute Plan: Patient has history of migraine headaches. Patient has migraine headaches on and off, however worst since past week. I will give sumatriptan and if headache resolved and will start on beta srinivasa for prophylaxis. Assessment and Plan DVT prophylaxis: SCDs, add Lovenox cutaneously. Discharge Planning Pending clinical improvement. Pulmonary consultation. Problem Qualifiers (1) Sepsis: Qualified Code: A41.9 - Sepsis, due to unspecified organism (2) UTI (urinary tract infection): Qualified Code: N39.0 - Urinary tract infection without hematuria, site unspecified (3) Fever: Qualified Code: R50.9 - Fever, unspecified fever cause (4) Chest pain: (5) Headache: Qualified Code: R51 - Acute nonintractable headache, unspecified headache type Maninder Westfall MD October 08, 2016 12:39
[2016-10-08] MEDS: cefTRIAXone INJ 2,000 MG in SODIUM CHLORIDE 0.9% INJ 100 ML IV SCH (15:16)
[2016-10-08] MEDS: ENOXAPARIN SODIUM 40 MG/0.4 ML SYRINGE SQ SCH (15:16)
[2016-10-08] MEDS: AZITHROMYCIN INJ 500 MG in SODIUM CHLOR 0.9% 250 ML INJ 250 ML IV SCH (15:16)
[2016-10-08 16:38] LABS: HEMOGLOBIN A1a 1.9 %; HEMOGLOBIN A1b 0.8 %; HEMOGLOBIN Ao 84.4 %; HEMOGLOBIN F 1.1 %; HEMOGLOBIN LA1C 2.2 %; HEMOGLOBIN P3 3.6 %
[2016-10-08 17:07] VITALS: BP 138/83; PULSE 68; RESP 15; TEMP 97.2; O2SAT 99
[2016-10-08] MEDS: ALPRAZolam 0.5 MG TAB PO PRN (17:55)
[2016-10-08 17:56] LABS: BLOOD GAS BASE EXCESS 2.7 mmol/L (-2-2); BLOOD GAS CARBOXYHEMOGLOBIN 1.3 % (0-4); BLOOD GAS HCO3 27 mmol/L (22-26); BLOOD GAS METHEMOGLOBIN 0.8 % (0-2); BLOOD GAS O2 HGB SATURATION 96 % (90-100); BLOOD GAS OXYGEN CONTENT 14.2 Vol % (12.0-20.0); BLOOD GAS PCO2 41 mmHG (38-42); BLOOD GAS PO2 90 mmHG (61-120); BLOOD GAS TOTAL HGB 10.5 G/DL (12.0-16.0); CRITICAL VALUE NO; DRAW SITE LT RADIAL; FIO2 21 %; NUMBER OF ARTERIAL PUNCTURES 1; STAT YES; TEMP CORR TO 98.6; ULNAR PULSE PRESENT
[2016-10-08] MEDS: methylPREDNISolone SOD SUCC 40 MG/1 ML VIAL IV PUSH SCH (18:42)
[2016-10-08 20:00] VITALS: BP_SYST 135; BP_SYST 147; BP_DIAS 87; BP_DIAS 88; PULSE 67; PULSE 73; RESP 16; RESP 20; TEMP 96.8; TEMP 97.2; O2SAT 100
[2016-10-08 20:34] LABS: POTASSIUM 3.6 MEQ/L (3.5-5.1)
[2016-10-08 20:37] LABS: BICARBONATE 27.3 MEQ/L (21.0-32.0)
[2016-10-08 20:38] LABS: APTT (PATIENT) 32.2 SEC (24.3-30.1); PROTHROMBIN TIME - PATIENT 11.5 SEC (9.8-11.6)
[2016-10-09] VITALS: BP 147/87; PULSE 62; RESP 19; TEMP 97.2; O2SAT 100
[2016-10-09] MEDS: SODIUM CHLORIDE 0.9% FLUSH 10 ML FLUSH IV FLUSH SCH ×3 (01:40→20:47)
[2016-10-09] MEDS: methylPREDNISolone SOD SUCC 40 MG/1 ML VIAL IV PUSH SCH ×4 (01:40→16:56)
[2016-10-09] MEDS: ALPRAZolam 0.5 MG TAB PO PRN ×3 (01:56→20:47)
[2016-10-09] MEDS: 1/2 NS + KCL 20 MEQ INJ 1,000 ML IV SCH ×2 (01:56→11:15)
[2016-10-09 04:00] VITALS: BP 136/78; PULSE 64; RESP 19; TEMP 97.7; O2SAT 95
[2016-10-09 06:28] LABS: AUTOMATED NEUTROPHIL # 5.9 TH/MM3 (1.8-7.7); BASOPHIL % 0.5 % (0.0-2.0); LYMPH % 12.3 % (9.0-44.0); LYMPHOCYTE # 0.8 TH/MM3 (1.0-4.8); MEAN CELL VOLUME 93.1 FL (80.0-100.0); MEAN CORPUSCULAR HEMOGLOBIN 31.2 PG (27.0-34.0); MEAN CORPUSCULAR HGB CONC 33.5 % (32.0-36.0); MONO % 0.9 % (0.0-8.0); NEUT % 86.3 % (16.0-70.0); PLATELET COUNT 219 TH/MM3 (150-450); RED BLOOD COUNT 3.75 MIL/MM3 (4.00-5.30); RED CELL DISTRIBUTION WIDTH 12.2 % (11.6-17.2); WHITE BLOOD COUNT 6.8 TH/MM3 (4.0-11.0)
[2016-10-09 06:31] LABS: HEMO FLAGS DIFF FINAL
[2016-10-09 06:46] LABS: CHLORIDE 106 MEQ/L (98-107); POTASSIUM 3.8 MEQ/L (3.5-5.1); SODIUM (NA) 143 MEQ/L (136-145)
[2016-10-09 07:22] LABS: ALKALINE PHOSPHATASE 123 U/L (45-117); ALT (GPT) 132 U/L (10-53); ANION GAP 9 MEQ/L (5-15); AST (GOT) 48 U/L (15-37); BICARBONATE 27.6 MEQ/L (21.0-32.0); BLOOD UREA NITROGEN 6 MG/DL (7-18); GLOMERULAR FILTRATION RATE 123 ML/MIN (>89); TOTAL BILIRUBIN ADULT 0.2 MG/DL (0.2-1.0)
[2016-10-09 08:00] VITALS: BP 118/73; PULSE 65; RESP 20; TEMP 95.9; O2SAT 100
--- NOTE | 2016-10-09 08:48 | MB ---
cc: RAFAEL OSPINA DATE OF CONSULTATION: 10/08/2016 REASON FOR CONSULTATION Respiratory distress and pneumonia. HISTORY OF PRESENT ILLNESS This is a 56-year-old lady with a history of hypertension and depression with anxiety, was admitted with fever, joint pains, right-sided chest pain and back pain and shortness of breath with wheezing. The patient apparently has taken some pain meds for her chest pain but had no significant relief and she was bringing up thick yellow mucous. Denied fevers, chills and night sweats but has had some nausea and reflux. She was seen in the emergency room and a chest CT was done which showed evidence of a dense consolidation in the left upper lobe. The patient has had pains along the chest and back. PAST MEDICAL HISTORY Includes: 1. Hypertension. 2. History of depression and anxiety. PAST SURGICAL HISTORY Includes: 1. Tonsillectomy. 2. Tubal ligation. 3. Surgery on her hand. ALLERGIES None. HABITS The patient smoked one-pack per day and has done so for over 20 years. No significant alcohol. REVIEW OF SYSTEMS The patient has wheezing, weakness, cough. She has no double vision or cataracts. No abdominal pains. Some nausea, vomiting. No bruising or leg or calf muscle pains. Other system review is negative. PHYSICAL EXAMINATION GENERAL: This is a thinly built middle-aged -[place] female who is pale, in no acute distress. No cyanosis or icterus. No lymphadenopathy. VITAL SIGNS: Her blood pressure is 110/70, pulse 116, respirations 18, temperature 98.2. HEENT: Head normocephalic. Pupils reactive. Tongue is moist. Throat was clear. Nasal mucosa edematous. NECK: Supple. No bruits or thyroid enlargement or lymphadenopathy. CHEST: Equal movements with decreased excursions. Breath sounds diminished at the periphery, expiratory wheezes are scattered bilaterally, prolonged expiration. HEART: Heart sounds ___ S1-S2. No murmur. ABDOMEN: Soft, benign. No masses. EXTREMITIES: Varicosities, mild peripheral edema. Normal reflexes and no gross motor deficits. Cranial nerves grossly intact. RECTAL: Exam is deferred. IMPRESSION 1. Left upper lobe pneumonia with hypoxemia. 2. Chronic respiratory failure. 3. Hypertension. PLAN The patient will be maintained on nebulized DuoNeb solution q.i.d., antibiotic therapy to be continued as ordered which include Rocephin 2 grams IV daily and Zithromax 500 mg IV daily and nebulized DuoNeb solution four times a day. A follow up chest x-ray and a follow up visit to be arranged in approximately 3 months. Thank you for this consultation. MD DYANA Corcoran/LETICIA /11:16 PM /8:38 AM
[2016-10-09] MEDS: IBUPROFEN 400 MG TAB PO PRN ×2 (11:14→20:47)
[2016-10-09 12:00] VITALS: BP 143/87; PULSE 73; RESP 20; TEMP 96; O2SAT 98
--- NOTE | 2016-10-09 12:03 | HHI.PR ---
Subjective Remarks Patient seen in follow-up for pneumonia and sepsis She reports that she is feeling better. Still having spasmodic coughs. No chest pain. Objective Vitals Vital Signs Date Time Temp Pulse Resp B/P Pulse Ox O2 Delivery O2 Flow Rate FiO2 10/09/16 08:00 95.9 65 20 118/73 100 10/09/16 04:00 97.7 64 19 136/78 95 10/09/16 00:00 97.2 62 19 147/87 100 10/08/16 20:00 97.2 67 16 147/88 100 10/08/16 20:00 96.8 73 20 135/87 100 10/08/16 17:07 97.2 68 15 138/83 99 I/O 10/08/16 10/08/16 10/08/16 10/09/16 10/09/16 10/09/16 06:59 14:59 22:59 06:59 14:59 22:59 Intake Total 3033 ml 550 ml 400 ml Balance 3033 ml 550 ml 400 ml Intake Oral 550 ml 400 ml IV Total 3033 ml # Voids 3 6 2 # Bowel Movements 0 Result Diagram: 10/09/16 0558 10/09/16 0558 Imaging Last Impressions Chest X-Ray 10/06/162120 Signed Impressions: Service Date/Time: Thursday, October 06, 2016 21:31 - CONCLUSION: No acute disease. Xavier Lindsey MD CT Angiography 10/06/16 0000 Signed Impressions: Service Date/Time: Thursday, October 06, 2016 23:44 - CONCLUSION: 1. No PE. 2. Dense consolidation within the left upper lobe. This may simply be an infectious infiltrate, however, followup studies are needed to document complete resolution. Other etiologies such as bronchoalveolar cell carcinoma can have a similar appearance. Anthony Quezada Jr., MD Abdomen/Pelvis CT 10/06/16 0000 Signed Impressions: Service Date/Time: Thursday, October 06, 2016 23:44 - CONCLUSION: 1. No acute abnormality. 2. Colonic diverticulosis. Anthony Quezada Jr., MD Objective Remarks GENERAL: Patient appearing older than stated age. CARDIOVASCULAR: Normal rate and regular rhythm without murmurs, gallops, or rubs. RESPIRATORY: Spasmodic cough. Good respiratory efforts. Coarse breath sounds on the right. The rest of the lung yeager clear to auscultation. GASTROINTESTINAL: Abdomen soft, non-tender, non-distended. Normal active bowel sounds MUSCULOSKELETAL: Extremities without cyanosis, or edema. NEURO: Alert & Oriented x4 to person, place, time, situation. Moves all ext x4 PSYCH: Appropriate mood and affect. A/P Problem List: (1) Sepsis ICD Code: A41.9 Status: Acute Plan: Sepsis secondary to community acquired pneumonia and UTI. CTA showed left upper lobe infiltrate, UA positive. Sepsis present on admission with patient presenting and temperature of 103.0 and heart rate of 115 as well as a respiratory rate of 22. Continue IV antibiotics, currently on Rocephin and azithromycin. Plan to transition to oral antibiotics tomorrow if she remains stable. Lactic acid 1.4. Blood cultures negative 2, negative flu a and B Urine culture showed mixed gram-positive alonso likely contaminant (2) CAP (community acquired pneumonia) ICD Code: J18.9 Status: Acute Plan: As seen on CTA mentioned above. Pulmonology has been consulted. Recommendations is to continue treatment with antibiotics, breathing treatments with plan to repeat imaging in about 3 months. Solu-Medrol was added. (3) UTI (urinary tract infection) ICD Code: N39.0 Status: Acute Plan: Abnormal urinalysis. Urine culture concurrent with contaminants. (4) Fever ICD Code: R50.9 Status: Acute Plan: Resolved (5) Hypokalemia ICD Code: E87.6 Status: Acute (6) Elevated LFTs ICD Code: R94.5 Status: Acute (7) Chest pain ICD Code: R07.9 Status: Acute Plan: Secondary to pneumonia as above. Pain medication as needed. Discharge Planning Plan to discharge in 1-2 days if the patient continued to improve. Problem Qualifiers (1) Sepsis: Qualified Code: A41.9 - Sepsis, due to unspecified organism (2) UTI (urinary tract infection): Qualified Code: N39.0 - Urinary tract infection without hematuria, site unspecified (3) Fever: Qualified Code: R50.9 - Fever, unspecified fever cause (4) Chest pain: Dutch Baker MD October 09, 2016 12:03
[2016-10-09] MEDS: ENOXAPARIN SODIUM 40 MG/0.4 ML SYRINGE SQ SCH (14:00)
[2016-10-09] MEDS: AZITHROMYCIN INJ 500 MG in SODIUM CHLOR 0.9% 250 ML INJ 250 ML IV SCH (14:00)
[2016-10-09] MEDS: cefTRIAXone INJ 2,000 MG in SODIUM CHLORIDE 0.9% INJ 100 ML IV SCH (14:01)
[2016-10-09 16:00] VITALS: BP 144/79; PULSE 72; RESP 20; TEMP 96.1; O2SAT 98
--- NOTE | 2016-10-09 18:08 | HHI.PR ---
Subjective Remarks She is coughing but has no fever. C/O Chest pains. has lost weight. Objective Vital Signs Date Time Temp Pulse Resp B/P Pulse Ox O2 Delivery O2 Flow Rate FiO2 10/09/16 16:00 96.1 72 20 144/79 98 10/09/16 12:00 96.0 73 20 143/87 98 10/09/16 08:00 95.9 65 20 118/73 100 10/09/16 04:00 97.7 64 19 136/78 95 10/09/16 00:00 97.2 62 19 147/87 100 10/08/16 20:00 97.2 67 16 147/88 100 10/08/16 20:00 96.8 73 20 135/87 100 I/O 10/08/16 10/08/16 10/08/16 10/09/16 10/09/16 10/09/16 06:59 14:59 22:59 06:59 14:59 22:59 Intake Total 3033 ml 550 ml 400 ml 300 ml Balance 3033 ml 550 ml 400 ml 300 ml Intake Oral 550 ml 400 ml 300 ml IV Total 3033 ml # Voids 3 6 2 2 # Bowel Movements 0 Result Diagram: 10/09/1658 10/09/16 0558 Objective Remarks GENERAL: This is a thinly built middle-aged -[place] female who is pale, in no acute distress. No cyanosis or icterus. No lymphadenopathy. . HEENT: Head normocephalic. Pupils reactive. Tongue is moist. Throat was clear. Nasal mucosa clear NECK: Supple. No bruits or thyroid enlargement or lymphadenopathy. CHEST: Equal movements with decreased excursions. Breath sounds diminished at the periphery, expiratory wheezes are scattered bilaterally, prolonged expiration. HEART: Heart sounds reg S1-S2. No murmur. ABDOMEN: Soft, benign. No masses. EXTREMITIES: Varicosities, mild peripheral edema. Normal reflexes and no gross motor deficits. Cranial nerves grossly intact. RECTAL: Exam is deferred Assessment and Plan Assessment and Plan IMPRESSION 1. Left upper lobe pneumonia with hypoxemia. 2. Chronic respiratory failure. 3. Hypertension. Plan : 1. Cont Antibiotics, Rocephin and Zithro 2. Sputum for AFB culture and Gram stain with culture 3. Nebs qid , duoneb. 4. PFT in am. 5. Will need F/U CT chest in 2 mths. David Lucio MD October 09, 2016 18:08
[2016-10-09 20:00] VITALS: BP 153/81; PULSE 60; RESP 16; TEMP 97.6; O2SAT 100
[2016-10-09] MEDS: MIRTAZAPINE 15 MG TAB PO SCH (20:47)
[2016-10-10] VITALS: BP 158/85; PULSE 68; RESP 18; TEMP 98.1; O2SAT 99
[2016-10-10 08:00] VITALS: BP 144/71; PULSE 62; RESP 20; TEMP 96.1; O2SAT 97
[2016-10-10] MEDS: SODIUM CHLORIDE 0.9% FLUSH 10 ML FLUSH IV FLUSH SCH ×2 (09:19→21:10)
[2016-10-10] MEDS: methylPREDNISolone SOD SUCC 40 MG/1 ML VIAL IV PUSH SCH ×2 (09:19→21:10)
--- NOTE | 2016-10-10 09:48 | PD.CONS ---
Provisional Diagnosis Admission Date October 06, 2016 at 22:43 [place] I. Adjustment disorder with mixed anxiety and depression, history of bipolar disorder, chronic PTSD [place] II. Deferred [place] III. Migraine, UTI, sepsis, elevated LFTs, hypokalemia [place] IV. Poor family and social support [place] V. 56 History of Present Illness Service Psychiatry Consult Requested By Primary Care Physician No Primary Care Physician HPI The patient is a 56 years old woman, domiciled alone in [place], unemployed, single, supported by [facility], with psychiatric history of bipolar disorder, PTSD, depression, 3 previous psychiatric hospitalizations, no active outpatient care, 3 previous suicidal attempts by OD, medical history of migraine and hypertension, who presents to [facility] complaining of myalgias, arthralgias, fever associated with right chest pain and shortness of breath. Patient was diagnosed and admitted due to pneumonia, sepsis, elevated LFTs, UTI, hypokalemia. Consulted to psychiatry due to acute symptomatology of depression and anxiety. On psychiatric evaluation patient is found sitting in her bed, calm, cooperative and pleasant. Patient explains that she came to the hospital mostly because she had a terrible chest pain. She says that she is happy that she came on time and doctors to good care of her. She now feels much better. She says that since she has been in the hospital she has been feeling increasingly anxious and sad. She has been having hard time sleeping at night and eating. She says that in general before coming to the hospital her mood was okay, she was coping good with anxiety and depression without medication. She used to be and Xanax and Paxil in the past, she was compliant with the medication and follow-up in [facility], but she stopped going a couple years ago, stopped the medication and she has been doing okay. The patient denies hopelessness, she denies helplessness, she denies anhedonia, she is in a good spirit right now, positive, she denies suicidal and homicidal ideation. She denies visual and auditory hallucinations. Patient is oriented 3, no attention deficit, no gross cognitive impairment observed. Patient denies flashbacks, hypervigilance, nightmares, avoidance. She reports occasional use of alcohol, she says once or twice a month 1 or 2 beers. She denies the use of illicit drugs.. Review of Systems Constitutional: DENIES: Diaphoretic episodes, Fatigue, Fever, Weight gain, Weight loss, Chills, Dizziness, Change in appetite, Night Sweats Endocrine: DENIES: Abnorml menstrual pattern, Heat/cold intolerance, Polydipsia , Polyuria, Polyphagia Eyes: DENIES: Blurred vision, Diplopia, Eye inflammation, Eye pain, Vision loss , Photosensitivity, Double Vision Ears, nose, mouth, throat: DENIES: Tinnitus, Hearing loss, Vertigo, Nasal discharge, Oral lesions, Throat pain, Hoarseness, Ear Pain, Running Nose, Epistaxis, Sinus Pain, Toothache, Odynophagia Gastrointestinal: DENIES: Abdominal pain, Black stools, Bloody stools, Constipation, Diarrhea, Nausea, Vomiting, Difficulty Swallowing, Anorexia Genitourinary: DENIES: Abnormal vaginal bleeding, Dysmenorrhea, Dyspareunia, Sexual dysfunction, Urinary frequency, Urinary incontinence, Urgency, Hematuria , Dysuria, Nocturia, Vaginal discharge Musculoskeletal: DENIES: Joint pain, Muscle aches, Stiffness, Joint Swelling, Back pain, Neck pain Immunologic/allergic: DENIES: Eczema, Urticaria Neurologic: DENIES: Abnormal gait, Headache, Localized weakness, Paresthesias, Seizures, Speech Problems, Tremor, Poor Balance Psychiatric: COMPLAINS OF: Anxiety, Depression, DENIES: Confusion, Mood changes, Hallucinations, Agitation, Suicidal Ideation, Homicidal Ideation, Delusions Past Family Social History Coded Allergies: No Known Allergies (Verified , 10/06/16) Current Medications Medications (Trade) Dose Ordered Sig/Winter Route Start Time Stop Time Status Last Admin (NS Flush) 2 ml UNSCH PRN IV FLUSH 10/06/16 23:00 (NS Flush) 2 ml BID IV FLUSH 10/07/16 09:00 10/10/16 09:19 (Tylenol) 650 mg Q4H PRN PO 10/06/16 23:00 10/07/16 06:51 (Zofran Inj) 4 mg Q6H PRN IVP 10/06/16 23:00 (Narcan Inj) 0.4 mg UNSCH PRN IV 10/06/16 23:00 (Toradol Inj) 15 mg Q6H PRN IM 10/07/16 06:15 10/12/16 06:14 10/07/16 16:21 (Motrin) 400 mg Q8H PRN PO 10/07/16 15:45 10/09/16 20:47 Enoxaparin Sodium 40 mg 40 mg Q24H SQ 10/08/16 14:00 10/09/16 14:00 Ceftriaxone Sodium 2000 mg/ Sodium Chloride 100 ml @ 200 mls/hr Q24H IV 10/08/16 13:00 10/09/16 14:01 (Zithromax Inj/ NS 250 ml Inj) 250 ml @ 250 mls/hr Q24H IV 10/08/16 14:00 10/09/16 14:00 (Xanax) 0.5 mg Q8H PRN PO 10/08/16 17:15 10/09/16 20:47 (Remeron) 15 mg HS PO 10/09/16 21:00 10/09/16 20:47 (SoluMEDROL INJ) 40 mg BID IV PUSH 10/10/16 09:00 10/10/16 09:19 Family History Her grand mother had schizophrenia Social History Patient was born and raised in the [facility], she now lives in [place], she is single, unemployed, she has 2 kids, 6 grand kids, supported by [email or web address], her highest level of education is some college Patient's Strengths (min. 2) Verbal communication Physical Exam On physical exam, no tremors, no ideas, no stiffness, no withdrawal, no EPS are present. Vital Signs Vital Signs Date Time Temp Pulse Resp B/P Pulse Ox O2 Delivery O2 Flow Rate FiO2 10/10/16 08:00 96.1 62 20 144/71 97 10/07/16 20:19 21 10/06/16 22:36 Room Air I/O 10/09/16 10/09/16 10/10/16 08:00 16:00 00:00 Intake Total 400 ml 300 ml 480 ml Output Total 350 ml Balance 400 ml 300 ml 130 ml Lab Results Toxicology is negative Urine, positive for urinary tract infection WBC 6.0, Hgb 11.7, HCT 35, NA 143, K1 38, creatinine 0.6, BUN 6, AST 48, ALT 132 Mental Status Examination Appearance woman, very skinny, good hygiene, [facility], age appearing, calm and cooperative Speech: Unremarkable Orientation: x3 Memory: Unremarkable Thought Process: Logical Thought Content: Unremarkable Hallucination Type: None Suicidal Ideation: No Previous Suicide Attempts: Yes Homicidal Ideation: No Previous Homicide Attempts: No Insight: Good Judgment: WNL Affect: Good Mood: Appropriate Motor Activity: Normal gait Assessment & Plan Problem List: (1) Adjustment disorder with mixed anxiety and depressed mood Assessment & Plan: On psychiatric evaluation today patient is calm, cooperative and pleasant. She is mostly logical, coherent and relevant. No agitation, no aggressive behavior, no delusions, no paranoia observed. Patient is oriented 3, no attention deficit, no gross cognitive impairment present. Patient reports symptomatology of mild to moderate depression consisting mostly in sadness due to current situation, insomnia, poor appetite, low energy, but denies suicidal ideation, homicidal ideation, visual and auditory hallucinations , hopelessness, helplessness, anhedonia, low self-esteem. She also reports some level of anxiety, especially at night, secondary to her medical conditions. Patient has history of PTSD, but she denies hypervigilance, nightmares, flashbacks, avoidance. Current symptoms of anxiety and depression seems to be related with adjustment disorder secondary to her medical situation. She does not require psychiatric hospitalization. We will recommend Remeron 15 mg to help with her depression, insomnia and also with appetite. Also will recommend Xanax 0.5 mg 3 times a day for anxiety while in the hospital. Extensive support, motivation psycho education provided. Consult appreciated. ICD Code: F43.23 Assessment & Plan Estimated LOS: Yong Rivers MD October 10, 2016 09:48
--- NOTE | 2016-10-10 11:04 | HHI.PR ---
Subjective Remarks Patient reports she is feeling better. Her appetite is improved. She is coughing less. Objective Vitals Vital Signs Date Time Temp Pulse Resp B/P Pulse Ox O2 Delivery O2 Flow Rate FiO2 10/10/16 08:00 96.1 62 20 144/71 97 10/10/16 00:00 98.1 68 18 158/85 99 10/09/16 20:00 97.6 60 16 153/81 100 10/09/16 16:00 96.1 72 20 144/79 98 10/09/16 12:00 96.0 73 20 143/87 98 I/O 10/09/16 10/09/16 10/09/16 10/10/16 10/10/16 10/10/16 07:00 15:00 23:00 07:00 15:00 23:00 Intake Total 400 ml 300 ml 480 ml 300 ml Output Total 350 ml Balance 400 ml 300 ml 130 ml 300 ml Intake Oral 400 ml 300 ml 480 ml 300 ml Output Urine Total 350 ml # Voids 2 2 2 # Bowel Movements 0 0 0 Result Diagram: 10/09/16 0558 10/09/1658 Objective Remarks GENERAL: Patient appearing older than stated age. CARDIOVASCULAR: Normal rate and regular rhythm without murmurs, gallops, or rubs. RESPIRATORY: Good respiratory efforts. Coarse breath sounds on the right. The rest of the lung yeager clear to auscultation. GASTROINTESTINAL: Abdomen soft, non-tender, non-distended. Normal active bowel sounds MUSCULOSKELETAL: Extremities without cyanosis, or edema. NEURO: Alert & Oriented x4 to person, place, time, situation. Moves all ext x4 PSYCH: Appropriate mood and affect. A/P Problem List: (1) Sepsis ICD Code: A41.9 Status: Acute Plan: Sepsis resolving. Sepsis secondary to community acquired pneumonia and UTI. CTA showed left upper lobe infiltrate, UA positive. Sepsis present on admission with patient presenting and temperature of 103.0 and heart rate of 115 as well as a respiratory rate of 22. Patient has been on IV Rocephin and azithromycin. Transition to oral Levaquin today. Lactic acid 1.4. Blood cultures so far negative, negative flu a and B Urine culture showed mixed gram-positive alonso likely contaminant (2) CAP (community acquired pneumonia) ICD Code: J18.9 Status: Acute Plan: As seen on CTA mentioned above. Pulmonology following. Recommendations is to continue treatment with antibiotics, breathing treatments with plan to repeat chest CT in 2 months. Solu-Medrol was added. (3) UTI (urinary tract infection) ICD Code: N39.0 Status: Acute Plan: Abnormal urinalysis. Urine culture concurrent with contaminants. (4) Fever ICD Code: R50.9 Status: Acute Plan: Resolved (5) Hypokalemia ICD Code: E87.6 Status: Acute (6) Elevated LFTs ICD Code: R94.5 Status: Acute (7) Chest pain ICD Code: R07.9 Status: Acute Plan: Secondary to pneumonia as above. Pain medication as needed. (8) Hyperglycemia ICD Code: R73.9 Status: Acute Plan: Probably related to steroids. Hemoglobin A1c is 5.5 Discharge Planning Plan to discharge tomorrow if remains stable. Problem Qualifiers (1) Sepsis: Qualified Code: A41.9 - Sepsis, due to unspecified organism (2) UTI (urinary tract infection): Qualified Code: N39.0 - Urinary tract infection without hematuria, site unspecified (3) Fever: Qualified Code: R50.9 - Fever, unspecified fever cause (4) Chest pain: Dutch Baker MD October 10, 2016 11:04
[2016-10-10 12:00] VITALS: BP 156/86; PULSE 66; RESP 20; TEMP 96; O2SAT 98
[2016-10-10] MEDS: ENOXAPARIN SODIUM 40 MG/0.4 ML SYRINGE SQ SCH (14:00)
[2016-10-10] MEDS: ALPRAZolam 0.5 MG TAB PO SCH ×2 (14:04→21:10)
[2016-10-10] MEDS: LEVOFLOXACIN 750 MG TAB PO SCH (14:04)
[2016-10-10] MEDS: IBUPROFEN 400 MG TAB PO PRN (14:05)
[2016-10-10 16:00] VITALS: BP 168/89; PULSE 62; RESP 20; TEMP 96.7; O2SAT 99
[2016-10-10] MEDS ORDERED: cloNIDine HCL 0.1 MG TAB PO PRN (18:00)
[2016-10-10 21:00] VITALS: BP 166/92; PULSE 66; RESP 18; TEMP 96.4; O2SAT 99
[2016-10-10] MEDS: MIRTAZAPINE 15 MG TAB PO SCH (21:10)
[2016-10-11 00:23] VITALS: BP 178/95; PULSE 66; RESP 18; TEMP 96.9; O2SAT 92
[2016-10-11] MEDS: ALPRAZolam 0.5 MG TAB PO SCH (04:53)
[2016-10-11 05:00] VITALS: BP 179/83; PULSE 52; RESP 18; TEMP 96; O2SAT 98
[2016-10-11] MEDS ORDERED: predniSONE 20 MG TAB PO SCH (09:00)
[2016-10-11] MEDS: SODIUM CHLORIDE 0.9% FLUSH 10 ML FLUSH IV FLUSH SCH (09:01)
[2016-10-11] MEDS: LEVOFLOXACIN 750 MG TAB PO SCH (09:01)
[2016-10-11] MEDS: IBUPROFEN 400 MG TAB PO PRN (09:06)
[2016-10-11] MEDS ORDERED: MIRTA15 PO (10:40)
[2016-10-11] MEDS ORDERED: LEVA750T PO (10:40)
[2016-10-11] MEDS ORDERED: PRED20 PO (10:40)
--- NOTE | 2016-10-11 10:40 | HHI.DCPOC ---
Discharge Care Plan Diagnosis: (1) Sepsis (2) CAP (community acquired pneumonia) (3) Elevated LFTs (4) Adjustment disorder with mixed anxiety and depressed mood Goals to Promote Your Health * To prevent worsening of your condition and complications * To maintain your health at the optimal level Directions to Meet Your Goals Take your medications as prescribed Follow your dietary instruction Follow activity as directed Keep your appointments as scheduled Take your immunizations and boosters as scheduled If your symptoms worsen call your PCP, if no PCP go to Urgent Care Center or Emergency Room Smoking is Dangerous to Your Health. Avoid second hand smoke Call the 24-hour hour crisis hotline for domestic abuse at Dutch Baker MD October 11, 2016 10:40
--- NOTE | 2016-10-11 10:42 | HHI.DS ---
Discharge Summary Admission Date October 06, 2016 at 22:43 Discharge Date: October 11, 2016 Admitting Diagnosis sepsis; uti; elevated LFT's (1) Sepsis ICD Code: A41.9 (2) CAP (community acquired pneumonia) ICD Code: J18.9 (3) UTI (urinary tract infection) ICD Code: N39.0 (4) Fever ICD Code: R50.9 (5) Hypokalemia ICD Code: E87.6 (6) Elevated LFTs ICD Code: R94.5 (7) Chest pain ICD Code: R07.9 (8) Hyperglycemia ICD Code: R73.9 Procedures None Brief History - From Admission History of present illness from the admitting physician This is a 56-year-old female with past medical history significant for hypertension and depression who is noncompliant with medications and presents to [facility] complaining of myalgias, arthralgias, fever associated with right chest pain and shortness of breath since Thursday. The patient states that she had taken ibuprofen intermittently but symptoms have not improved since 5 AM prior to presentation to emergency department. The patient denies any cough, sputum production. The patient denies abdominal pain , diarrhea, nausea vomiting, denies dysuria, frequency, urgency or flank pain. There are no reports of vaginal discharge or vaginal bleeding. Denies joint pain or swelling, denies skin rash. CBC/BMP: 10/09/16 0558 10/09/16 0558 Significant Findings Laboratory Tests Test 10/08/16 10/08/16 10/09/16 17:48 20:13 05:58 Blood Gas HCO3 27 mmol/L (22-26) Blood Gas Base Excess 2.7 mmol/L (-2-2) Arterial Blood pH 7.43 (7.380-7.420) Blood Gas Hemoglobin 10.5 G/DL (12.0-16.0) Activated Partial 32.2 SEC Thromboplast Time (24.3-30.1) Chloride Level 110 MEQ/L (98-107) Random Glucose 144 MG/DL 266 MG/DL (74-106) (74-106) Red Blood Count 3.75 MIL/MM3 (4.00-5.30) Neutrophils (%) (Auto) 86.3 % (16.0-70.0) Lymphocytes # (Auto) 0.8 TH/MM3 (1.0-4.8) Blood Urea Nitrogen 6 MG/DL (7-18) Phosphorus Level 1.7 MG/DL (2.5-4.9) Aspartate Amino Transf 48 U/L (15-37) (AST/SGOT) Alanine Aminotransferase 132 U/L (10-53) (ALT/SGPT) Alkaline Phosphatase 123 U/L (45-117) Albumin 2.7 GM/DL (3.4-5.0) Imaging Last Impressions Chest X-Ray 10/06/162120 Signed Impressions: Service Date/Time: Thursday, October 06, 2016 21:31 - CONCLUSION: No acute disease. Xavier Lindsey MD CT Angiography 10/06/16 0000 Signed Impressions: Service Date/Time: Thursday, October 06, 2016 23:44 - CONCLUSION: 1. No PE. 2. Dense consolidation within the left upper lobe. This may simply be an infectious infiltrate, however, followup studies are needed to document complete resolution. Other etiologies such as bronchoalveolar cell carcinoma can have a similar appearance. Anthony Quezada Jr., MD Abdomen/Pelvis CT 10/06/16 0000 Signed Impressions: Service Date/Time: Thursday, October 06, 2016 23:44 - CONCLUSION: 1. No acute abnormality. 2. Colonic diverticulosis. Anthony Quezada Jr., MD PE at Discharge GENERAL: Patient appearing older than stated age. CARDIOVASCULAR: Normal rate and regular rhythm without murmurs, gallops, or rubs. RESPIRATORY: Good respiratory efforts. Coarse breath sounds on the right. The rest of the lung yeager clear to auscultation. GASTROINTESTINAL: Abdomen soft, non-tender, non-distended. Normal active bowel sounds MUSCULOSKELETAL: Extremities without cyanosis, or edema. NEURO: Alert & Oriented x4 to person, place, time, situation. Moves all ext x4 PSYCH: Appropriate mood and affect. Pt update on day of discharge Patient reports she is feeling well. Breathing comfortably. We discussed discharge planning at length. She is agreeable to follow-up outpatient with pulmonology and repeat CAT scan outpatient. Hospital Course 56-year-old female admitted with Sepsis secondary to community acquired pneumonia and UTI. CTA showed left upper lobe infiltrate, UA positive, however urine culture is negative. Sepsis present on admission with patient presenting and temperature of 103.0 and heart rate of 115 as well as a respiratory rate of 22. Patient has been on IV Rocephin and azithromycin. She was transitioned to oral Levaquin. She was followed by pulmonology and started on IV Solu-Medrol. The patient significantly improved. Per the ultrasound tech recommendations, she is to follow-up in 2 months for a repeat CAT scan outpatient. Patient is discharged in good condition on oral Levaquin and a prednisone taper to complete the course of treatment. Hyperglycemia: Probably related to steroids. Hemoglobin A1c is 5.5 Depression: Patient was seen by psychiatry. She was started on Remeron. She was given a prescription upon discharge and advised to follow-up outpatient with PCP. Pt Condition on Discharge: Good Discharge Disposition: Discharge Home Discharge Time: > 30 minutes Discharge Instructions DIET: Follow Instructions for: As Tolerated, No Restrictions Activities you can perform: Regular-No Restrictions Follow up Referrals: PCP Follow-up - 1 Week Pulmonology - 1 Month with David Lucio MD New Medications: Prednisone (Prednisone) 20 Mg Tab 20 MG PO DIRECTED 20 MG twice a day x 3 days, then 20 MG daily x 3 days, then 10 MG daily x 4 days Inflammation #11 Ref 0 TAB Levofloxacin (Levaquin) 750 Mg Tab 750 MG PO DAILY@11 #12 TAB Mirtazapine (Mirtazapine) 15 Mg Tab 15 MG PO HS #30 TAB Dutch Baker MD October 11, 2016 10:42
--- NOTE | 2016-10-21 09:25 | RSPPFT ---
DATE OF PROCEDURE: 10/09/16 COMMENTS: Spirometry demonstrates an FEV1 of 1.8 at 70% of predicted, FVC of 2.4 at 75%, FEF 25-75 is 72%. Spirometry suggests mild obstructive disease. Post-bronchodilator study demonstrated no significant change. Flow volume loops suggest an obstructive pattern. IMPRESSION: 1. Mild to moderate obstructive disease. 2. No significant change following use of bronchodilator.
== END 2016-10-11 12:19 | disposition home or self-care (01) | DRG 871 ==
LOC: PHED 20:37 → PHEDA 22:43 → PH3A 10-07 00:18
PROVIDERS: ADMIT Family Medicine; ATTEND Family Medicine
DX: A41.9 Sepsis, unspecified organism (principal); J18.9 Pneumonia, unspecified organism; E87.0 Hyperosmolality and hypernatremia; J96.11 Chronic respiratory failure with hypoxia; E63.9 Nutritional deficiency, unspecified; I10 Essential (primary) hypertension; F43.23 Adjustment disorder with mixed anxiety and depressed mood; G47.00 Insomnia, unspecified; F17.210 Nicotine dependence, cigarettes, uncomplicated; G43.909 Migraine, unspecified, not intractable, without status migrainosus; E83.51 Hypocalcemia; R73.9 Hyperglycemia, unspecified; E87.6 Hypokalemia; Z91.5 Personal history of self-harm; Z91.14 Patient's other noncompliance with medication regimen; T38.0X5A Adverse effect of glucocorticoids and synthetic analogues, initial encounter
CPT/HCPCS: 36600; 71010; 71275; 74177; 80048; 80053; 80074; 80307; 81001; 82805; 83036; 83605; 83735; 84100; 85025; 85610; 85730; 87015; 87040; 87086; 87449; 87804; 93005; 94060; 96365; 96375; J0456; J0696; J1650; J1885; J2543; J2920; J3030; J3370; J7030; J7040; J7050; J7512; Q9967